=== PATIENT | female | born 1960 | race Caucasian/White ===

== ENCOUNTER 2021-04-29 09:18 | Emergency (ER) | payer BC ==
[~2021-04-29] VITALS: Ht 167.6 cm; Wt 111.6 kg
[2021-04-29] MEDS ORDERED: LISINOPRIL20 MG PO (09:33)
[2021-04-29] MEDS ORDERED: EQUETRO300 MG PO (09:34)
[2021-04-29 11:15] LABS: BE(vivo) 5.3 mmol/L (-2 to +3); HCO3 30.3 mmol/L (22.0-26.0); PCO2 45.8 mmHg (35.0-45.0); PO2 83.4 mmHg (80.0-100.0); pH 7.439 (7.360-7.450); sO2 96.5 % (92.0-98.0)
[2021-04-29 12:10] VITALS: BP 127/72
--- NOTE | 2021-04-29 15:14 | EKG ---
[address] [place] [address] ELECTROCARDIOGRAM REPORT Name: ERIK DAVID Room #: DEP Vinay#: [id number] Admission: 04/29/21 Attend Phys: Discharge: 04/29/21 Date of : 64 Report #: [id number] [facility] ED Test Date: 2021-04-29 Test Time: 09:25:25 Pat Name: ERIK DAVID Department: Room: Gender: F [employer] Supervisor: TAWANA : 1960 Requested By: Mirza Santoro Order Number: [id number] MD: Denys Menezes Measurements Intervals [place] Rate: 81 P: 47 RI: 157 QRS: 9 QRSD: 83 T: 50 QT: 377 QTc: 438 Interpretive Statements Sinus rhythm Low voltage, precordial leads No previous ECG available for comparison Electronically Signed On 04-29-2021 15:14:15 CDT by Denys Menezes [email or web address] <ELECTRONICALLY SIGNED> By: Denys Menezes MD, [facility] 04/29/21 1514 0925 4 Denys Menezes MD, FACC /EPI
== END 2021-04-29 12:10 | disposition home or self-care (01) ==
LOC: ER 09:18
PROVIDERS: Student in an Organized Health Care Education/Training Program
DX: R55 Syncope and collapse (principal); M53.3 Sacrococcygeal disorders, not elsewhere classified; M25.522 Pain in left elbow; I10 Essential (primary) hypertension; Z79.899 Other long term (current) drug therapy